=== PATIENT | female | born 1950 ===

== ENCOUNTER 2021-05-24 11:45 | Outpatient (CLI) | payer OTHER | END 2021-05-24 12:15 | disposition home or self-care (01) | LOC: PPH VACUNA 11:45 | PROVIDERS: ATTEND Emergency Medicine Pediatric Emergency Medicine | DX: Z23 Encounter for immunization (principal) ==

== ENCOUNTER 2021-08-31 09:15 | Inpatient (IN) | payer OTHER ==
[2021-08-31] MEDS ORDERED: METFORMIN HCL500 M3 PO (11:45)
[2021-08-31] MEDS ORDERED: COZAAR100 MG (11:45)
[2021-08-31] MEDS ORDERED: PEPCID AC20 MG PO (11:46)
[2021-08-31] MEDS ORDERED: NEURONTIN600 M1 PO (11:47)
[2021-08-31] MEDS ORDERED: MECLIZINE HCL25 M1 (11:48)
[2021-08-31] MEDS ORDERED: PRAVASTATIN SOD40 MG PO (11:48)
[2021-08-31] MEDS ORDERED: ZYRTEC10 MG PO (11:49)
[2021-09-08] MEDS ORDERED: BACTRIM DS TAB1 EACH PO (07:40)
[2021-09-08] MEDS ORDERED: OXYC1TAB9 PO (07:40)
[2021-09-08] MEDS ORDERED: ELIQUIS2.5 MG PO (07:40)
[2021-09-08] MEDS ORDERED: INTEGRA PLUS C1 EACH PO (07:40)
== END 2021-09-08 13:46 | DRG 470 ==
LOC: O/R 09-06 08:30 → SURH 09-06 08:30
PROVIDERS: ADMIT Orthopaedic Surgery Sports Medicine; ATTEND Orthopaedic Surgery Sports Medicine
PROC: 0SRC0J9 Replacement of Right Knee Joint with Synthetic Substitute, Cemented, Open Approach (ICD-10-PCS; principal; 2021-09-06 14:15)
DX: M17.11 Unilateral primary osteoarthritis, right knee (principal); I10 Essential (primary) hypertension; Z20.822 Contact with and (suspected) exposure to COVID-19